=== PATIENT | male | born 1940 | race Caucasian/White ===

== ENCOUNTER 2016-12-30 08:15 | Day surgery (SDC) | payer MEDICARE ==
[2016-12-29 11:21] LABS: BASOPHILS 0.4 % (0-2); EOSINOPHILS 1.4 % (0-7); HEMATOCRIT 40.1 % (42.0-54.0); HEMOGLOBIN 14.4 g/dL (13.5-17.5); IMMATURE GRANULOCYTES 0.3 % (0-5); LYMPHOCYTES 18.8 % (15-50); MCH 33.3 pg (26.0-34.0); MCHC 35.9 g/dL (31.0-37.0); MCV 92.8 fL (80.0-100.0); MEAN PLATELET VOLUME 8.8 fL (7.4-10.4); MONOCYTES 9.4 % (2-11); NEUTROPHILS 69.7 % (40-80); PLATELET COUNT 212 10x3/uL (130-400); RBC 4.32 10x6/uL (4.20-6.10); RDW 12.1 % (11.5-14.5); WBC 7.7 10x3/uL (4.8-10.8)
[2016-12-29 11:35] LABS: CALC OSMOLALITY 260 mosm/kg (275-300); CALCIUM 9.1 mg/dL (8.5-10.1); CARBON DIOXIDE 25.4 mmol/L (21.0-32.0); CHLORIDE - SERUM 97 mmol/L (98-107); CREATININE - SERUM 0.9 mg/dL (0.6-1.3); GLUCOSE 94 mg/dL (74-106); POTASSIUM - SERUM 4.7 mmol/L (3.5-5.1); SODIUM 130 mmol/L (136-145); UREA NITROGEN 12 mg/dL (7-18); eGFR NON AFRICAN AMERICAN 88 mL/min (90-120)
[~2016-12-30] VITALS: Ht 167.6 cm; Wt 74.8 kg
--- NOTE | ~2016-12-30 | OP ---
PATIENT NAME: ARUNA QUIROS MEDICAL RECORD: [id number] :42 LOCATION:D.OPS ADMISSION DATE: SURGEON: ELDER HARRELL MD DATE OF OPERATION: 12/30/2016 PREOPERATIVE DIAGNOSES: 1. Left inguinal hernia. 2. Hypertension. POSTOPERATIVE DIAGNOSES: 1. Left inguinal hernia. 2. Hypertension. PROCEDURE: Left inguinal hernia repair with medium PHS mesh. SURGEON: Elder Harrell MD REPORT OF PROCEDURE: The patient's abdomen was prepped and draped in sterile fashion. An oblique incision was made above the left inguinal ligament. Electrocautery was used to dissect through the subcutaneous tissue down to the external oblique fascia. This fascia was opened up using electrocautery to the external ring. The ilioinguinal nerve was found and high ligated. A [place] was then placed around the spermatic cord. We dissected out a small hernia sac in an indirect fashion. This was dissected free and pushed back into the abdominal cavity. A large cord lipoma was also found and this was high ligated with a 3-0 silk. We then made an opening in the inguinal floor and opened up the preperitoneal space of Retzius. A medium PHS mesh was inserted and sutured down on all 4 sides using interrupted 0 Vicryls. The wound was then irrigated out with normal saline and care was taken to make sure there was no sign of any bleeding. At this point, the external oblique fascia was closed with running 2-0 Vicryl, Jaquan's was closed with interrupted 3-0 Vicryls and the skin was closed with running subcutaneous 5-0 Monocryl. A 10 mL of 0.25% Marcaine with epinephrine was infused into the surrounding tissues and the wound was dressed appropriately. COMPLICATIONS: None. CONDITION: Stable. ANESTHESIA: General endotracheal and local. BLOOD LOSS: Minimal. TRANSINT:[id number] Voice Confirmation ID: [id number] DOCUMENT ID: [id number] ELDER HARRELL MD CC: NEENA HERNANDEZ MD [id number] DICTATION DATE: 12/30/16 1200 G[facility] TORCH BRAZIER: 12/30/16 1312 [facility] [address] [place] [address]
[~2016-12-30 08:15] MED LIST: LISINOPRIL10 MG PO; ZYLOPRIM100 MG PO
[2016-12-30 10:01] VITALS: BP 177/82; Ht 167.6 cm; Wt 74.8 kg
[2016-12-30] MEDS ORDERED: HYDROCODONE-APA1 TAB PO (11:57)
--- NOTE | 2016-12-30 15:35 | NUR ---
1500--IV DC'D, PT UP TO DRESS AT THIS TIME. PHU SALAS 1380--DISCHARGE INSTRUCTIONS GIVEN, PT VERBALIZES UNDERSTANDING. PT OFF UNIT VIA WC. PHU SALAS
== END 2016-12-30 15:20 | disposition home or self-care (01) ==
LOC: D.OPS 08:15 → D.PAN 10:30 → D.OPS 15:20
PROVIDERS: Anesthesiology
DX: K40.90 Unilateral inguinal hernia, without obstruction or gangrene, not specified as recurrent (principal); D17.6 Benign lipomatous neoplasm of spermatic cord